=== PATIENT | male | born 1950 | race Caucasian/White ===

== ENCOUNTER → 2019-10-25 15:23 | Outpatient (CLI) | payer MEDICARE, OTHER, SELFPAY ==
--- NOTE | 2019-10-25 | DI.MRI.S_ITS ---
PROCEDURE: MR LUMBAR SPINE WO CON INDICATIONS: Low back pain and left leg pain TECHNIQUE: Noncontrast sagittal T1 spin echo and T2 fast echo, sagittal STIR, axial T1 and T2 fast spin echo through the lumbar spine. In cases with scoliosis, additional coronal T2 fast spin echo may be performed. COMPARISON: [facility], RG, XR L-SPINE 2-3V, 07/03/2015, 9:02. [facility], RG, XR L-SPINE 2-3V, 06/04/2019, 14:07. FINDINGS: Image quality: Excellent. Alignment and Curvature: There is minimal retrolisthesis seen at the L1-L2 and L2-L3 and L3-L4 levels. On Grade I anterolisthesis is seen of the L4-L5 level, without definite associated pars defects. Bone Marrow: Marrow is of normal overall signal. No acute vertebral body compression fractures. Spinal Cord: Conus medullaris terminates at the L1 level. Visualized cord demonstrates normal signal and size. Paraspinous Soft Tissues: No paravertebral masses. Incidental note is made of a circumaortic left renal vein. T12-L1: Normal appearance. L1-L2: Moderate loss of disc height is seen. Loss of disc signal is seen. Bridging endplate osteophytes are seen. Subacute appearing Schmorl's nodes are seen at the inferior endplate of L1 and superior endplate of L2. Moderate generalized disc bulge is seen. Moderate bilateral neural foraminal narrowing is seen, right worse than left. Mild loss of disc height is seen. Loss of disc signal is seen. L2-L3: Mild loss of disc height is seen. Loss of disc signal is seen. Moderate disc bulge is seen, which is eccentric to the right. Mild facet joint hypertrophy is seen. Moderate bilateral neural foraminal narrowing is seen, right worse than left. Mild to moderate central canal narrowing is seen. L3-L4: Moderate loss of disc height is seen. Loss of disc signal is seen. At least moderate disc bulge is seen, with a mild central disc protrusion. Moderate facet joint hypertrophy is seen. There is moderate to severe bilateral neural foraminal narrowing seen, left worse than right. Moderate central canal narrowing is seen. L4-L5: Moderate loss of disc height is seen. Loss of disc signal is seen. Moderate disc bulge is seen, with a central/left disc extrusion, which continues into the left neural foramen. There is moderate to severe facet hypertrophy seen. Associated hypertrophy of the ligamentum flavum can be seen. There is severe left-sided and moderate to severe right-sided neural foraminal narrowing seen. There is a degree of compression seen upon the exiting nerve roots. Moderate to severe central canal narrowing is seen, as on series 6 image 27. L5-S1: Mild loss of disc height is seen. Loss of disc signal is seen. Mild generalized disc bulge is seen. Mild to moderate facet hypertrophy is seen. There is moderate right-sided and mild left-sided neural foraminal narrowing seen. Mild central canal narrowing is seen. IMPRESSION: Lumbar spine degenerative changes are seen, which are most prominent at the L4-L5 level. At L4-L5, there is a left-sided disc extrusion, with superior migration of disc material and associated severe left-sided neural foraminal narrowing. Dictated by: Derad Jones M.D. on 10/25/2019 at 16:46 Approved by: Dread Jones M.D. on 10/25/2019 at 16:51
== END ==
PROVIDERS: PCP Orthopaedic Surgery; Referring Provider Internal Medicine; Visit Provider Internal Medicine
DX: M51.26 Other intervertebral disc displacement, lumbar region (principal); M47.816 Spondylosis without myelopathy or radiculopathy, lumbar region; M79.605 Pain in left leg
CPT/HCPCS: 72148

== ENCOUNTER → 2019-11-27 11:01 | Outpatient (CLI) | payer MEDICARE, OTHER, SELFPAY ==
[2019-11-28 23:10] LABS: COVID19 Sendout Not Detected (Not Detect)
== END ==
PROVIDERS: Visit Provider Physician Assistant
DX: Z01.812 Encounter for preprocedural laboratory examination (principal)
CPT/HCPCS: 87635

== ENCOUNTER 2019-11-30 06:54 | Outpatient (CLI) | payer MEDICARE, OTHER, SELFPAY ==
[2019-11-30] VITALS (11 sets, daily range): BP systolic 122–140; BP diastolic 73–89; PULSE 49–75; RESP 15–16; TEMP 36.3; O2SAT 94–100
--- NOTE | 2019-11-30 06:57 | DI.RAD.S_ITS ---
PROCEDURE: PAIN L INTERLAMINAR/CAUDAL INJ INDICATIONS: SPINAL STENOSIS COMPARISON: None. FINDINGS: Fluoroscopic spot filming was performed to verify placement of spinal needles at the right L4-L5 level(s), as labeled on the films. Appropriate location(s) of the needle tip(s) was confirmed by injection of iodinated contrast. IMPRESSION: Access needle at the right L4-L5 lamina. Dictated by: Suellen Noyola MD, PhD on 12/01/2019 at 12:14 Approved by: Suellen Noyola MD, PhD on 12/01/2019 at 12:14
[2019-11-30] MEDS: fentaNYL 100 MCG/2 ML INJ 50 MCG IV (08:32)
[2019-11-30] MEDS: MIDAZOLAM 5 MG/5 ML VIAL IV (08:32)
[2019-11-30] MEDS: DEXAMETHASONE 10 MG/ML VIAL 20 MG INJ (08:36)
[2019-11-30] MEDS: IOPAMIDOL 15 ML VIAL 3 ML INJ (08:36)
[2019-11-30] MEDS: BETAMETHASONE 30 MG/5 ML MDV 6 MG INJ (08:36)
[2019-11-30] MEDS: BUPIVACAINE 0.25% (PF) VIAL 2 ML INJ (08:37)
--- NOTE | 2019-11-30 08:54 | P.PCN_ITS ---
Date/Time/Diagnoses Date of procedure: 11/30/19 Time of procedure: 08:54 Pre-procedure diagnosis: 1. HNP WITH RADICULAR FEATURES, 2. MULTILEVEL CENTRAL STENOSIS, Post-procedure diagnosis: same Procedure Notes Procedure: 1. FLUOROSCOPICALLY GUIDED CONTRAST CONTROLLED INTERLAMINAR EPIDURAL STEROID INJECTION -L4/5 Indications: Oren is referred for treatment of HNP with stenosis and R>L LE symptoms. Physician: Joel Morgan Total Fluoroscopy time (seconds): 8 Total sedation minutes: 24 Complications: none Procedure in detail & Post-procedure care: FINDINGS Multilevel Central Spinal Stenosis with Nerve Root Compression DESCRIPTION OF PROCEDURE Fluoroscopically guided, contrast-controlled L4/5 translaminar epidural steroid injection. Following review of allergy and review of potential side effects and complications, including, but not necessarily limited to, infection, allergic reaction, local tissue breakdown, temporary as well as permanent nerve injury, paralysis, stroke and possible , the patient indicated that the patient understood and agreed to proceed. An informed consent document was signed by the patient, witnessed by a nurse, and placed in the patient's chart. Additionally, other treatment options including modalities, medications, and physical therapy were reviewed with the patient. After review of previous anaesthesic history and IV conscious sedation the patient was deemed safe to proceed with today?s procedure with IV conscious sedation as ASA class II designation. Safety time-out was performed to confirm patient ID, procedure to be performed and site of procedure. IV sedation was accomplished with a combination of 3mg of Versed and 50mcg of Fentanyl was administered by the RN after DO order, titrated to patient comfort during the course of the procedure while the patient remained responsive to all verbal commands In the prone position, following sterile prep and drape of the lumbar region, the L4/5 translaminar space was identified fluoroscopically. The skin was anesthetized via a 25-gauge, 1.5-inch needle with 1% lidocaine solution. At this point, a 22-gauge short bevel spinal needle was atraumatically introduced and advanced under fluoroscopic guidance into the region of the L4/5 translaminar space. Depth was confirmed on lateral view. Radiological data, including multiple fluoroscopic views of the lumbar spine, reveal a spinal needle at the L4/5 translaminar space. Lateral views then show placement of the needle in the epidural space. Subsequent views show contrast material flowing superiorly and inferiorly in the epidural space. No vascular or intrathecal uptake is observed. At this point, using loss of resistance technique with saline and air, the epidural space was entered. This was confirmed following negative aspiration with injection of approximately 1.5 cc of Isovue 200, showing excellent epidural flow without vascular or intrathecal uptake. At this point, 1 cc of 1% lidocaine solution combined with 3cc or 20mg of dexamethasone and 6mg betamethasone was injected without incident. The patient tolerated the procedure well without signs or symptoms of complications prior to transfer to the recovery area continued monitoring without incident. The patient was then transferred to the recovery area where they were observed for an appropriate period of time after the injection. The patient reported a VAS score of 6 prior to the procedure and a post- procedure VAS of 0. POST OP INSTRUCTIONS The patient was provided a Pain Log to continue to record their response to the target-specific procedure prior to follow-up visit with their referring physician. Additionally, specific post-injection care instructions and a contact number to our office were provided if concerns arise regarding possible complications associated with the procedure are suspected.
--- NOTE | 2019-11-30 11:08 | PC.NURSE ---
0900: pt returned to pre proc room by . Independent in transfer from wc to chair, monitoring resumed
--- NOTE | 2019-11-30 16:05 | PC.NURSE ---
Pt tolerated procedure well. Vitals stable upon transfer to post procedure room. Report given to DAVIDE Esquivel. Fentanyl and Versed given by DAVIDE Salcedo. All other meds given by Dr. Morgan.
== END 2019-11-30 09:45 | disposition home or self-care (01) ==
LOC: RAD 06:56
PROVIDERS: Referring Provider Physical Medicine & Rehabilitation; Visit Provider Physical Medicine & Rehabilitation
DX: M51.16 Intervertebral disc disorders with radiculopathy, lumbar region (principal); M48.061 Spinal stenosis, lumbar region without neurogenic claudication
CPT/HCPCS: 62323; 99152; J0702; J1100; J2250; J3010